=== PATIENT | female | born 1990 | race Two or more races ===

== ENCOUNTER 2018-11-25 15:21 | Emergency (ER) | payer MEDICAID ==
[~2018-11-25] VITALS: Ht 157.5 cm; Wt 72.6 kg
[~2018-11-25 15:21] MED LIST: MACRODANTIN100 MG ORAL; NKM
--- NOTE | 2018-11-25 16:05 | Emergency Room Report ---
History of Present Illness General Chief Complaint: General Complaint Source: Patient Present Illness HPI 28-year-old female presents to the emergency department complaining of 7 out of 10 in severity sharp pain under the left clavicle and left shoulder region 3 days. Patient reports pain with attempts to raise her arm and attempts to sleep , and side. Patient reports pain started after awakening when she had to sleep on the floor. Patient states that she has been having a sleep on the floor lately and makes it very difficult for her to sleep at night with the pain. Patient states sometimes she has pain with taking a deep breath. She denies shortness of breath or difficulty breathing. Patient denies abdominal pain, flank pain or tenderness, nausea, vomiting or jaw pain. Patient denies cardiac history. Patient reports that she is she just recently found out by having a positive test at home. Patient states she is only been taking Tylenol for her symptoms however she is not getting any relief. She denies trauma or fall she denies strenuous activities or heavy lifting. Patient reports on occasion pain will radiate down the left arm she denies paresthesias in that she is attempting to sleep on that side. She denies unilateral weakness, headache, dizziness, changes in her vision. Pt. reports LMP was September, she missed her period in October, and tested urine 4 days ago on Thursday. She denies vaginal d/c. Allergies: Coded Allergies: No Known Allergies (Unverified , 04/12/13) Patient History Past Medical History: see triage record Past Surgical History: none Pertinent Family History: none Last Menstrual Period: 09/2018 Now: Yes : 2 Para: 1 Reviewed Nursing Documentation: PMH: Agreed; PSxH: Agreed Nursing Documentation-PM Past Medical History: No Stated History Review of Systems All Other Systems: negative except mentioned in HPI Physical Exam Vital Signs Date Time Temp Pulse Resp B/P (MAP) Pulse Ox O2 Delivery O2 Flow Rate FiO2 11/25/18 15:40 98.2 70 16 111/68 99 Room Air Sp02 EP Interpretation: reviewed, normal General Appearance: no apparent distress, alert, GCS 15, non-toxic Head: normocephalic, atraumatic Eyes: bilateral eye normal inspection, bilateral eye PERRL ENT: hearing grossly normal, normal voice Neck: full range of motion, no bony tend Respiratory: chest non-tender, lungs clear, normal breath sounds, speaking full sentences Cardiovascular #1: regular rate, rhythm, no edema Gastrointestinal: normal bowel sounds, non tender, soft, non-distended, no guarding Genitourinary: normal inspection Musculoskeletal: back normal, gait/station normal, normal range of motion, tender - TTP to the left clavicle anteriorly and on top, some ttp of the anterior left shoulder, no lateral ttp. FROM with some pain. equal clerk telegraph service strength. NVI. Neurologic: alert, oriented x3, responsive, motor strength/tone normal, sensory intact, speech normal, grossly normal Psychiatric: judgement/insight normal Skin: normal color, no rash, warm/dry, well hydrated Lymphatic: no adenopathy Medical Decision Making PA Attestation Dr. Pastrana is my supervising Physician whom patient management has been discussed with. Diagnostic Impression: Primary Impression: Shoulder pain Qualified Codes: M25.512 - Pain in left shoulder Additional Impressions: Chest pain Qualified Codes: R07.9 - Chest pain, unspecified Pain of left clavicle confirmed by positive urine test ER Course 28-year-old female presents to the emergency department complaining of 7 out of 10 in severity sharp pain under the left clavicle and left shoulder region 3 days. Patient reports pain with attempts to raise her arm and attempts to sleep , and side. Patient reports pain started after awakening when she had to sleep on the floor. Patient states that she has been having a sleep on the floor lately and makes it very difficult for her to sleep at night with the pain. Patient states sometimes she has pain with taking a deep breath. She denies shortness of breath or difficulty breathing. Patient denies abdominal pain, flank pain or tenderness, nausea, vomiting or jaw pain. Patient denies cardiac history. Patient reports that she is she just recently found out by having a positive test at home. Patient states she is only been taking Tylenol for her symptoms however she is not getting any relief. She denies trauma or fall she denies strenuous activities or heavy lifting. Patient reports on occasion pain will radiate down the left arm she denies paresthesias in that she is attempting to sleep on that side. She denies unilateral weakness, headache, dizziness, changes in her vision. Pt. reports LMP was September, she missed her period in October, and tested urine 4 days ago on Thursday. She denies vaginal d/c. Ddx considered but are not limited to Shoulder / clavicular strain, MS, pneumonia, contusion, costochondritis, PE, ACS, Shoulder strain, Chest wall contusion. aortic dissection. Vital signs: are WNL, pt. is afebrile H&PE are most consistent with musculoskeletal etiology, low suspicion for cardiac cause. ORDERS: - EKG: -Urine Hcg: ED INTERVENTIONS: - PT. placed on cardiac monitoring. - Percocet PO-- D/w pt. risks vs. benefits to this medication during and low risk for teratogenicity, or w/d symptoms upon delivery primarily seen with long-term use. Pt. understands the risks and benefits and requests to take the pain medication. Pt. to follow up with OBGYN for continued management of . D/w pt. if she develops abdominal pain, vaginal d/c, cramps, persistent vomiting, sudden onset [place], fevers, or worsening of her symptoms or any new symptoms that she needs to promptly return to the ED. otherwise I do not identify an emergent condition at this time and feel that with this patient's current presentation that she is stable for close outpatient follow-up. DISCHARGE: At this time pt. is stable for d/c to home. Will provide printed patient care instructions, and any necessary prescriptions. Care plan and follow up instructions have been discussed with the patient prior to discharge. Labs Test 11/25/18 16:10 Urine HCG, Qualitative Positive (NEGATIVE) EKG Diagnostic Results EP Interpretation: Dr. Pastrana Rate: normal - 55 bpm Rhythm: NSR ST Segments: no acute changes ASA given to the pt in ED: No PA Scribe Text This Interpretation was scribed by LEILA Baron. Last Vital Signs Date Time Temp Pulse Resp B/P (MAP) Pulse Ox O2 Delivery O2 Flow Rate FiO2 11/25/18 15:40 98.2 70 16 111/68 99 Room Air Disposition: HOME, SELF-CARE Condition: Stable Scripts Mineral Oil/Hydrophil Petrolat (AQU[employer] HEALING O[employer]MENT) 50 Gm Oint...g. 1 APPLIC TP TID, #50 GM Prov: Princess Baron 11/25/18 Cmb#95/Iron/Fa/Dha ( + DHA COMBO PACK) 1 Each Combo..pkg 1 EACH PO DAILY for 30 Days, #1 PACK 2 Refills Prov: Princess Baron 11/25/18 Acetaminophen* (TYLENOL EXTRA STRENGTH*) 500 Mg Tablet 500 MG ORAL Q6H, #30 TAB 0 Refills Prov: Princess Baron 11/25/18 Patient Instructions: First Trimester of , [id number], Folic Acid in , Shoulder Pain, [id number] Additional Instructions: Take medications as directed. Follow up with a OBGYN within 3 days, even if your symptoms have resolved. Return sooner to ED if new symptoms occur, or current symptoms become worse. - Please note that this Emergency Department Report was dictated using [employer] grower technology software, occasionally this can lead to erroneous entry secondary to interpretation by the dictation equipment. Princess Baron Nov 25, 2018 16:05
[2018-11-25] MEDS ORDERED: oxyCODONE HCL/Acetaminophen 5/325mg ORAL ONE (16:30)
--- NOTE | 2018-11-25 16:30 | NUR ---
ED Nurse Note:pt. came with left shoulder pain radiating to chest, EKG done, urine sent to labs
[2018-11-25 16:41] VITALS: BP 103/59
[2018-11-25] MEDS ORDERED: PRENATAL + DHA1 EAC2 PO (17:07)
[2018-11-25] MEDS ORDERED: TYLENOL EXTRA500 MG ORAL (17:07)
[2018-11-25 17:12] VITALS: BP 103/59
[2018-11-25] MEDS ORDERED: AQUAPHOR HEALIN50 GM TP (17:12)
--- NOTE | 2018-11-25 17:17 | NUR ---
ED Nurse Note:PT is Dc per Md order. pt vital signs is stable. pt is alert and oriented times 4, pt is able to ambulate with steady gait. pt has left with all belongings, as well as DC notes and prescriptions. pt is able to teach back DC notes and prescriptions. pt vital signs, status, and condition was reported to ERMD prior to DC. pt is instructed to follow up with primary provider as soon as possible. pt is instructed to return to ER as soon as possible if any abnormalities.
--- NOTE | 2018-11-26 18:00 | Cardiology Report ---
APPROVED REPORT EKG Measurement Heart [id number] Sinus bradycardia Minimal voltage criteria for LVH, may be normal variant Cannot rule out Anterior infarct, age undetermined Abnormal ECG
== END 2018-11-25 17:15 | disposition home or self-care (01) ==
LOC: EMR 16:17
DX: M25.512 Pain in left shoulder (principal); R07.9 Chest pain, unspecified; Z32.01 Encounter for pregnancy test, result positive
CPT/HCPCS: 81025; 93005; 99283

== ENCOUNTER 2019-02-26 21:38 | Emergency (ER) | payer MEDICAID ==
[~2019-02-26] VITALS: Ht 154.9 cm; Wt 68.0 kg
[~2019-02-26 21:38] MED LIST changes: +AQUAPHOR HEALIN50 GM TP; +PRENATAL + DHA1 EAC2 PO; +TYLENOL EXTRA500 MG ORAL
[2019-02-26 21:40] VITALS: BP 0/0
--- NOTE | 2019-02-26 21:40 | NUR ---
ED Nurse Note: Pt has diarrhea 1 time this morning, at 3pm she started having abdominal pain. Pt had some seafood and sweets last night, and current pregnent 20~23 weeks. Pt is AO x 4times, VSS, on room air no distress. DAVE seen Pt at bedside.
[2019-02-26 22:00] VITALS: BP 110/63
--- NOTE | 2019-02-26 22:00 | NUR ---
AMA: SEE AMA FORM. Pt and decide to go to [facility] for OBGYN follow up.
--- NOTE | 2019-02-27 00:31 | Emergency Room Report ---
History of Present Illness General Chief Complaint: Abdominal Pain Source: Patient Present Illness HPI 29-year-old female presents ED for evaluation. Complaining of abdominal pain with vomiting and diarrhea. Started today after eating food. Pain is burning, 8 out of 10, nonradiating. States she is . About 23 weeks. Denies vaginal bleeding or discharge. Denies fevers or chills. Denies flank pain. No other aggravating relieving factors. Denies any other associated symptoms Allergies: Coded Allergies: No Known Allergies (Unverified , 04/12/13) Patient History Past Medical History: HTN Past Surgical History: none Pertinent Family History: none Social History: Denies: smoking, alcohol use, drug use Now: Yes Immunizations: UTD Reviewed Nursing Documentation: PMH: Agreed; PSxH: Agreed Nursing Documentation-PMH Hx Hypertension: Yes - while Review of Systems All Other Systems: negative except mentioned in HPI Physical Exam Vital Signs Date Time Temp Pulse Resp B/P (MAP) Pulse Ox O2 Delivery O2 Flow Rate FiO2 02/26/19 21:40 98.0 80 20 0/0 99 Room Air Sp02 EP Interpretation: reviewed, normal General Appearance: no apparent distress, alert, GCS 15, non-toxic Head: normocephalic, atraumatic Eyes: bilateral eye normal inspection, bilateral eye PERRL ENT: hearing grossly normal, normal pharynx, no angioedema, normal voice Neck: full range of motion, supple/symm/no masses Respiratory: chest non-tender, lungs clear, normal breath sounds, speaking full sentences Cardiovascular #1: regular rate, rhythm, no edema Cardiovascular #2: 2+ carotid (R), 2+ carotid (L), 2+ radial (R), 2+ radial (L) , 2+ dorsalis pedis (R), 2+ dorsalis pedis (L) Gastrointestinal: normal bowel sounds, soft, non-distended, no guarding, no rebound, tenderness - epigastric Rectal: deferred Genitourinary: normal inspection, no CVA tenderness Musculoskeletal: back normal, gait/station normal, normal range of motion, non- tender Neurologic: alert, oriented x3, responsive, motor strength/tone normal, sensory intact, speech normal Psychiatric: judgement/insight normal, memory normal, mood/affect normal, no suicidal/homicidal ideation Reflexes: 3+ bicep (R), 3+ bicep (L), 3+ tricep (R), 3+ tricep (L), 3+ knee (R) , 3+ knee (L) Skin: normal color, no rash, warm/dry, well hydrated Lymphatic: no adenopathy Medical Decision Making Diagnostic Impression: Primary Impression: Abdominal pain Qualified Codes: R10.13 - Epigastric pain Additional Impression: Qualified Codes: Z3A.23 - 23 weeks gestation of ER Course Hospital Course 29 yo F presents with vomiting, diarrhea, abd pain. about 23 weeks Differential diagnoses include: gastrits, gastroenterits, ectopic , ovarian torsion/cyst, UTI Clinical course Patient placed on stretcher in ED. After initial history and physical I explained to patient that we do not have labor and delivery here. We are unable to provide real time monitoring of the fetus. we are able to draw labs and get an ultrasound Patient and states that she would prefer to go to [facility] where they can get real-time monitoring and be evaluated at labor and delivery. Understands the risks of leaving. Patient has competency to make her own decisions. Signed AMA form. Diagnosis - abdominal pain, patient left AMA Last Vital Signs Date Time Temp Pulse Resp B/P (MAP) Pulse Ox O2 Delivery O2 Flow Rate FiO2 02/26/19 22:00 98.2 20 110/63 98 Room Air 02/26/19 21:41 69 Status: unchanged Disposition: AGAINST MEDICAL ADVICE Condition: Unknown Referrals: NON PHYSICIAN (PCP) Mikhail Rodriguez MD Feb 27, 2019 00:31
== END 2019-02-26 22:00 | disposition left against medical advice (07) ==
LOC: EMR 21:51
DX: O21.9 Vomiting of pregnancy, unspecified (principal); O16.2 Unspecified maternal hypertension, second trimester; Z3A.23 23 weeks gestation of pregnancy; R10.13 Epigastric pain
CPT/HCPCS: 99281